=== PATIENT | male | born 1995 | race Caucasian/White ===

== ENCOUNTER → 2018-09-08 | Outpatient (CLI) | payer OTHER | LOC: OD 09:13 | PROVIDERS: ATTEND Otolaryngology | DX: J34.2 Deviated nasal septum (principal) | CPT/HCPCS: 36415; 82785; 86003 ==

== ENCOUNTER 2019-08-22 06:41 | Day surgery (SDC) | payer OTHER ==
[~2019-08-22 06:41] MED LIST: LACTATED RINGERS 1000 ML IV PRN; LIDOCAINE 0.5% INJ-PF (5 MG/ML) 50 ML SDV SUBCUT PRN
[2019-08-22] MEDS ORDERED: ONDANSETRON HCL INJ/PF 4 MG/2 ML SDV ONE (06:48)
[2019-08-22] MEDS ORDERED: MIDAZOLAM 2 MG/2 ML INJ ONE (06:48)
[2019-08-22] MEDS ORDERED: FENTANYL CITRATE INJ/PF 250 MCG/5 ML AMPULE ONE (06:48)
[2019-08-22] MEDS ORDERED: ROCURONIUM BROMIDE INJ 50 MG/5 ML VIAL IV ONE (06:49)
[2019-08-22] MEDS ORDERED: PROPOFOL INJ 200 MG/20 ML VIAL IV ONE (06:49)
[2019-08-22] MEDS ORDERED: DEXAMETHASONE SOD PHOS INJ 10 MG/1 ML VIAL ONE (06:49)
[2019-08-22] MEDS ORDERED: DEXMEDETOMIDINE INJ 80 MCG/20 ML VIAL IV ONE (06:49)
[2019-08-22] MEDS ORDERED: SUCCINYLCHOLINE CHLORIDE INJ 200 MG/10 ML VIAL ONE (06:49)
[2019-08-22] MEDS ORDERED: LIDOCAINE 2% INJ-PF (100 MG/5 ML) SYRINGE ONE (06:50)
[2019-08-22] MEDS ORDERED: SCOPOLAMINE HYDROBROMIDE 1.5 MG PATCH.TD72 TD PRN (07:06)
[2019-08-22] MEDS ORDERED: BUPIVACAINE HCL 0.5%-EPI 1:200000 INJ/PF 30 ML VIAL ONE (07:13)
[2019-08-22] MEDS ORDERED: BACITRACIN ZINC OINTMENT 15 GM ONE (07:13)
[2019-08-22] MEDS ORDERED: OXYMETAZOLINE HCL 0.05% NASAL SPRAY 15 ML BOTTLE ONE ×2 (07:14→08:23)
[2019-08-22] MEDS ORDERED: BUPIVACAINE HCL 0.5%/EPI 1:200000 INJ 1.8 ML CARTRIDGE ONE (07:14)
[2019-08-22] MEDS ORDERED: MINERAL OIL (STERILE) 10 ML VIAL ONE (07:14)
[2019-08-22] MEDS ORDERED: CEFAZOLIN 2 GM/D5W RTU 2 GM/50 ML RTUPB IV ONE (07:22)
[2019-08-22] MEDS ORDERED: CEFAZOLIN 1 GM/D5W RTU 1 GM/50 ML RTUPB IV ONE (11:42)
[2019-08-22] MEDS ORDERED: OXYCODONE-ACETAMINOPHEN 5-325 MG TABLET ONE (13:26)
--- NOTE | 2019-09-02 10:19 | Operative Report ---
Operative Report-[facility] Operative Report: Date of surgery: August 22, 2019 PREOPERATIVE DIAGNOSES: 1. Nasal Deformities, Acquired 2. Recurrent chronic nasal Dyspnea 3. Nasal septal deviation, Acquired 4. Residual inferior turbinate hypertrophy 5. History of prior nasal surgery 6. History of recurrent nasal trauma with resulting nasal deformities and nasal dyspnea 7. Nasal valve collapse/deficiencies POSTOPERATIVE DIAGNOSES: 1. Nasal Deformities, Acquired 2. Recurrent chronic nasal Dyspnea 3. Nasal septal deviation, Acquired 4. Residual inferior turbinate hypertrophy 5. History of prior nasal surgery 6. History of recurrent nasal trauma with resulting nasal deformities and nasal dyspnea 7. Nasal valve collapse/deficiencies PROCEDURES: 1. Revision Reconstructive endonasal/closed septorhinoplasty addressing the bony nasal pyramid with multiple osteotomies and addressing the upper and lower lateral cartilages with multiple irradiated costal cartilage rib grafts utilized and nasal tip complex support/stabilization. 2. External irradiated costal cartilage rib graft material (see graft information below). 3. Revision intramural inferior turbinate reductions using submucus resection techniques. SURGEON: Dr. Alfonso Rabago Anesthesia Staff: LINA bagley ANESTHESIA: General endotracheal tube anesthesia/GETA DRAINS: None GRAFT: [employer] irradiated costal cartilage rib graft, ID: [id number], code: [id number], expiration date 09-22-2024. SPONGE COUNT: Verified NEEDLE COUNT: Verified SPECIMEN/MATERIALS FORWARD TO THE LAB: None ESTIMATED BLOOD LOSS: 200 mL TOTAL IV FLUIDS: 1200 mL URINE OUTPUT: 500 ml COMPLICATIONS: None FINDINGS: 1. Moderate to severe right external nasal deviation involving bone and ca rtilage, left nasal sidewall collapse with slit like left nostril/nasal passage opening and nasal valve collapse/deficiency. 2. Residual bilateral inferior turbinate hypertrophy left greater than right. 3. Minimal nasal septal irregularities and no septal perforation noted. 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 The patient had previously undergone a primary septorhinoplasty and bilateral inferior turbinate reductions approximately 1 year ago and had been doing well with consistently improved bilateral nasal function until he sustained a another facial nasal trauma resulting in significant deviation of his nose to the right with weakening of the left nasal cartilages with nasal valve collapse/deformities/deficiencies. The patient was evaluated and desired to undergo a revision reconstructive septorhinoplasty with external irradiated costal cartilage rib grafts to once again improve his bilateral functional nasal airflow and to improve his overall quality of life once again. The procedure, and all of the risks and complications were all discussed in detail with the patient. They voiced an understanding, agreed to proceed, and consent was obtained. DESCRIPTION OF OPERATIVE PROCEDURE: The patient was taken to the main operating room and placed on the operating room table in the supine position. Appropriate monitors were placed. Using mask and IV access general anesthesia was induced. The patient was then transorally intubated without difficulty. The table was next positioned for revision reconstructive nasal surgery. The patient underwent a nasal examination and local anesthetic with epinephrine was administered to establish a nasal block. The patient next had two Afrin soaked neuropatties placed into each nasal passage. The patient was then prepped and draped in the usual fashion for nasal surgery. The neuropatties were removed. The patient underwent a nasal examination with findings as noted above. At this point there were access points made to perform osteotomies at the lateral aspect, central aspect with transcutaneous access, and a right anterior cartilaginous and left marginal incisions with blunt and sharp dissection in subperiosteal planes. At this point medial, lateral, and central osteotomies were performed with mobil ization of the bony nasal pyramid into the midline. At this point there was still significant left nasal sidewall/nasal vestibule collapse/deficiencies noted requiring greater portions of cartilage for repair/grafting. Attention was now turned to performing revision work of the bilateral inferior turbinate reductions. The turbinate microdebrider system at a setting of 1500 RPM was used to perform additional revision bilateral inferior turbinate submucous resections. This was followed by use of the [place] elevator to outfracture each inferior turbinate. At this point a decision was made to utilize irradiated costal cartilage rib graft material. The grafts were precisely carved/contoured and precise pockets were created in the left lateral nasal sidewall and along the dorsum. Dorsal ra sp work had also been performed. At this point the grafts were placed into their precise pockets and were noted to be stable in position. There was also a columellar base narrowing/stabilization suture placed with 5-0 Prolene suture followed by reapproximation of the skin/soft tissue component with chromic suture. At this point the nose was thoroughly suctioned. One modified Merocel nasal pack with Afrin and bacitracin ointment was placed per nasal passage that were secured at the caudal aspect with 4-0 Prolene suture. The nose was then cleaned and dried followed by placement of Mastisol Steri-Strips and a [place] compression splint. Next, the patient was returned to the anesthesia staff and was allowed to emerge from general anesthesia. The patient was extubated in the main operating room and was then transported to the postanesthesia recovery unit in stable condition. There were no complications.
== END 2019-08-22 14:16 | disposition home or self-care (01) ==
LOC: SC 06:41
PROVIDERS: ATTEND Otolaryngology
DX: M95.0 Acquired deformity of nose (principal); J34.89 Other specified disorders of nose and nasal sinuses; S09.92XS Unspecified injury of nose, sequela; X58.XXXS Exposure to other specified factors, sequela; R06.09 Other forms of dyspnea; J34.2 Deviated nasal septum; J34.3 Hypertrophy of nasal turbinates; J30.9 Allergic rhinitis, unspecified
CPT/HCPCS: 00160; 30802; 30420; 20910; J2250; J3490 ×6; J0690 ×2; J3010; J2405; J2704; J1100; 160; J0330; J2001